=== PATIENT | male | born 1955 | race Caucasian/White ===

== ENCOUNTER 2017-04-28 22:16 | Emergency (ER) | payer MEDICARE, BC ==
--- NOTE | 2017-04-28 23:13 | Emergency Department Record ---
History of Present Illness - General Chief complaint: Head Injury Stated complaint: HEAD INJURY/ CONFUSED NOW Time Seen by Provider: 04/28/17 23:07 Source: Patient, Family Mode of Arrival: Ambulatory Limitations: No limitations - History of Present Illness Initial comments: 61 yo male presents after a fall backwards. He hit his head. No LOC. He did have brief confusion but he does have underlying dementia. No nausea or vomiting. No anti-coagulants. No other pains or injuries. His gate has been steady. No ongoing confusion. He is back to baseline. He has a contusion on the posterior scalp. Complaint: Head injury Onset/Timin -: Minutes(s) Mechanism of Injury: Mechanical fall Location: Dental Loss of Consciousness: No Previous Trauma to this Area: No Place: Home Radiation: None Consistency: Constant Provoking factors: None known Context: On Aspirin - Related Data Home Medications Medication Instructions Recorded Confirmed Last Taken Acetaminophen 500 mg PO ASDIR tab 11/28/16 04/28/17 Unknown Aspirin 81 mg PO QD tab.chew 11/28/16 04/28/17 Unknown Bupropion HCl [Wellbutrin Sr] 150 mg PO QD tab 11/28/16 04/28/17 Unknown Diphenhydramine HCl [Allergy] 12.5 mg PO DAILY 11/28/16 04/28/17 Unknown Docusate Sodium [Stool Softener] 50 mg PO DAILY tab 11/28/16 04/28/17 Unknown Klonopin 1 mg PO BID tab 11/28/16 04/28/17 Unknown Multivit-Min/FA/Lycopen/Lutein 1 each PO DAILY tab 11/28/16 04/28/17 Unknown [Complete Multi 50+ Tablet] Simvastatin 20 mg PO QD tab 11/28/16 04/28/17 Unknown Trazodone HCl 150 mg PO 1-2XD tab 11/28/16 04/28/17 Unknown Allergies/Adverse reactions: Allergies Allergy/AdvReac Type Severity Reaction Status Date / Time metoclopramide HCl AdvReac Intermediate refer to Unverified 04/28/17 22:48 [From [facility]] note Travel Screening - Travel/Exposure Within Last 30 Days Have you traveled within the last 30 days?: No Review of Systems Constitutional: Denies: Chills, Fever, Malaise, Weakness Eyes: Denies: Eye discharge, Eye pain, Photophobia, Vision change ENT: Denies: Congestion, Throat pain Respiratory: Denies: Cough, Dyspnea, Hemoptysis, Stridor, Wheezes Cardiovascular: Denies: Chest pain, Palpitations, Syncope Gastrointestinal: Denies: Abdominal pain, Diarrhea, Nausea, Vomiting Genitourinary: Denies: Dysuria, Hematuria, Urgency Musculoskeletal: Reports: Neck pain. Denies: Arthralgia, Back pain, Myalgia Skin: Denies: Bruising, Change in color, Rash Neurological: Reports: Headache. Denies: Numbness, Weakness Psychiatric: Denies: Anxiety Hematological/Lymphatic: Denies: Blood Clots, Easy bleeding, Easy bruising, Swollen glands Past Medical History - SOCIAL HISTORY Smoking Status: Never smoker Alcohol Use: None Drug Use: None - RESPIRATORY Hx Respiratory Disorders: No - CARDIOVASCULAR Hx Cardio Disorders: Yes Hx Cardiac Cath: Yes - NEURO Hx Neuro Disorders: Yes Hx Dementia: Yes - GI Hx GI Disorders: Yes Hx Reflux: Yes - ENDOCRINE Hx Endocrine Disorders: No - MUSCULOSKELETAL Hx Musculoskeletal Disorders: No - PSYCH Hx Psych Problems: Yes Hx Anxiety: Yes Hx Behavior Problems: Yes (Bi-Polar) Hx Depression: Yes - HEMATOLOGY/ONCOLOGY Hx Hematology/Oncology Disorders: No Family Medical History Any Significant Family History?: No Physical Exam - General General Appearance: Alert, Oriented x3, Cooperative, No acute distress Limitations: No limitations - Head Head exam: negative: Atraumatic (2cm posterior contusion, intact skin, no lacerations) Head exam detail: Abrasion, Contusion Image of Face/Head: 1 - contusion - Eye Eye exam: Normal appearance, PERRL. negative: Conjunctival injection, Periorbital swelling - ENT ENT exam: Normal exam, Mucous membranes moist Ear exam: Normal external inspection Nasal Exam: Normal inspection Mouth exam: Normal external inspection Teeth exam: Normal inspection Throat exam: Normal inspection - Neck Neck exam: Normal inspection, Full ROM. negative: Lymphadenopathy, Tenderness - Respiratory Respiratory exam: Normal lung sounds bilaterally. negative: Respiratory distress - Cardiovascular Cardiovascular Exam: Regular rate, Normal rhythm, Normal heart sounds - GI/Abdominal GI/Abdominal exam: Soft. negative: Tenderness - Rectal Rectal exam: Deferred - exam: Deferred - Extremities Extremities exam: Normal inspection, Full ROM, Normal capillary refill. negative: Tenderness - Back Back exam: Reports: Normal inspection, Full ROM. Denies: CVA tenderness (R), CVA tenderness (L), Muscle spasm, Paraspinal tenderness, Rash noted, Tenderness , Vertebral tenderness - Neurological Neurological exam: Alert, Normal gait, Oriented X3. negative: Altered, Motor sensory deficit - Psychiatric Psychiatric exam: Agitated - Skin Skin exam: Abrasion Course Vital Signs 04/28/17 23:05 Temperature 98.0 F Pulse Rate [ 62 Pulse Ox Probe] Respiratory 18 Rate Blood Pressure 130/106 [Left Arm] Pulse Ox 97 - Reevaluation(s) Reevaluation #1: The CT scans of the head and neck were reviewed. No acute injury of the head or neck Degenerative changes noted in the neck 04/29/17 00:04 Disposition Disposition: Discharge Clinical Impression: Contusion of head Qualifiers: Encounter type: initial encounter Contusion of head detail: scalp Qualified Code(s): S00.03XA - Contusion of scalp, initial encounter Disposition: Home, Self-Care Condition: (1) Good Instructions: Head Injury (ED) Additional Instructions: Return if there are any concerns about pain, dizziness, confusion, or signs of concern after this ER visit. Forms: Patient Portal Access Time of Disposition: 00:08
--- NOTE | 2017-04-30 12:45 | CT SCAN REPORT ---
EXAM: CT OF THE BRAIN WITHOUT CONTRAST HISTORY: TRAUMA. TECHNIQUE: CT of the brain without contrast was obtained. Comparison: None. FINDINGS: The globes are intact. The paranasal sinuses and mastoid air cells are unremarkable. No displaced or depressed skull fracture. No intra or extraaxial hemorrhage. CT is limited for the evaluation of acute infarct. No CT evidence for large or territorial acute infarct. No mass or midline shift. Atrophy. Small vessel ischemic change. IMPRESSION: ATROPHY. SMALL VESSEL ISCHEMIC CHANGE. JOB NUMBER: [id number] [facility]
--- NOTE | 2017-04-30 12:48 | CT SCAN REPORT ---
EXAM: CT OF THE CERVICAL SPINE HISTORY: FALL. TECHNIQUE: Axial CT images of the cervical spine were obtained with coronal and sagittal reconstructions. Comparison: None. FINDINGS: Evaluation of spinal canal contents is limited due to CT technique. Mild motion artifact, however, the vertebral body height and alignment is preserved. The atlantoaxial space is preserved. The lateral masses are not displaced. Multilevel degenerative change. IMPRESSION: MOTION ARTIFACT. MULTILEVEL DEGENERATIVE CHANGE. JOB NUMBER: [id number] [facility]
== END 2017-04-29 00:30 | disposition home or self-care (01) ==
LOC: ER 22:16
DX: S00.03XA Contusion of scalp, initial encounter (principal); F31.9 Bipolar disorder, unspecified; W18.39XA Other fall on same level, initial encounter
CPT/HCPCS: 70450; 72125; 99283

== ENCOUNTER 2017-07-22 12:03 | Emergency (ER) | payer MEDICARE, BC ==
--- NOTE | 2017-07-22 12:20 | Emergency Department Record ---
History of Present Illness - General Chief Complaint: Recheck - Other Stated Complaint: HIGH INR Time Seen by Provider: 07/22/17 12:12 Source: Patient Mode of arrival: Ambulatory - History of Present Illness Initial Comments: 62 yo male presents with concerns about an elevated INR, slow heart rate, and possible blood in the stool on Friday. He was started on coumadin about 3 weeks ago for atrial fibrillation. His visiting RN today noted the POC testing to be elevated on the INR. The noted HR in the 40's for several days. The patient thinks he had some streaks of blood in the stools Friday. The patient states he has not symptoms. No chest pain, no shortness of breath, no lightheaded or dizziness. No swelling. He feels "just fine". PCP is Edward , Cardio is Zuleyka. Complaint: Abnormal lab -: Days(s) Symptoms Since Prior Visit: No new symptoms Associated Symptoms: None - Related Data Home Medications Medication Instructions Recorded Confirmed Last Taken Aspirin [Aspirin EC] 81 mg PO DAILY 07/22/17 07/22/17 1 Day Ago ~07/21/17 Clonazepam [Klonopin] 2 mg PO DAILY 07/22/17 07/22/17 1 Day Ago ~07/21/17 Escitalopram Oxalate [Lexapro] 10 mg PO DAILY 07/22/17 07/22/17 1 Day Ago ~07/21/17 Fluticasone Propionate [Flonase 1 spray NS QPM 07/22/17 07/22/17 1 Day Ago Allergy Relief] ~07/21/17 Loratadine [Claritin] 10 mg PO DAILY 07/22/17 07/22/17 1 Day Ago ~07/21/17 Ranitidine HCl [Zantac] 150 mg PO BID 07/22/17 07/22/17 1 Day Ago ~07/21/17 Risperidone [Risperdal] 2 mg PO BID 07/22/17 07/22/17 1 Day Ago ~07/21/17 Warfarin Sodium [Coumadin] 5 mg PO ASDIR 07/22/17 07/22/17 1 Day Ago ~07/21/17 Allergies Allergy/AdvReac Type Severity Reaction Status Date / Time metoclopramide HCl AdvReac Intermediate refer to Verified 07/22/17 12:17 [From Reglan] note prochlorperazine AdvReac HYPERSENSIT Verified 07/22/17 12:18 [From Compazine] POP Review of Systems Constitutional: Denies: Chills, Fever, Malaise, Weakness Eyes: Denies: Eye discharge, Eye pain, Photophobia ENT: Denies: Congestion, Throat pain Respiratory: Denies: Cough, Dyspnea, Hemoptysis, Stridor, Wheezes Cardiovascular: Denies: Chest pain, Palpitations, Syncope Endocrine: Denies: Fatigue, Polydipsia, Polyuria Gastrointestinal: Reports: Hematochezia (possible on Friday). Denies: Abdominal pain, Diarrhea, Nausea, Vomiting Genitourinary: Denies: Dysuria, Frequency, Hematuria Musculoskeletal: Denies: Arthralgia, Back pain, Joint swelling, Myalgia Skin: Denies: Bruising, Change in color, Rash Neurological: Denies: Abnormal gait, Confusion, Headache, Numbness, Tingling, Tremors, Weakness Psychiatric: Denies: Anxiety Hematological/Lymphatic: Denies: Blood Clots, Easy bleeding, Easy bruising, Swollen glands Past Medical History - SOCIAL HISTORY Smoking Status: Never smoker Drug Use: None - RESPIRATORY Hx Respiratory Disorders: No - CARDIOVASCULAR Hx Cardio Disorders: Yes Hx Cardiac Cath: Yes - NEURO Hx Neuro Disorders: Yes Hx Dementia: Yes - GI Hx GI Disorders: Yes Hx Reflux: Yes - ENDOCRINE Hx Endocrine Disorders: No - MUSCULOSKELETAL Hx Musculoskeletal Disorders: No - PSYCH Hx Psych Problems: Yes Hx Anxiety: Yes Hx Behavior Problems: Yes (Bi-Polar) Hx Depression: Yes - HEMATOLOGY/ONCOLOGY Hx Hematology/Oncology Disorders: No Physical Exam - General General Appearance: Alert, Oriented x3, Cooperative, No acute distress Limitations: No limitations - Head Head exam: Atraumatic, Normal inspection - Eye Eye exam: Normal appearance. negative: Conjunctival injection, Periorbital swelling - ENT ENT exam: Normal exam, Mucous membranes moist Ear exam: Normal external inspection Nasal Exam: Normal inspection Mouth exam: Normal external inspection - Neck Neck exam: Normal inspection, Full ROM. negative: Tenderness - Respiratory Respiratory exam: Normal lung sounds bilaterally. negative: Respiratory distress - Cardiovascular Cardiovascular Exam: Normal heart sounds, Bradycardia, Irregular rhythm. negative: Normal rhythm Peripheral Pulses: 2+: Radial (R), Radial (L) - GI/Abdominal GI/Abdominal exam: Soft. negative: Distended, Guarding, Rebound, Rigid, Tenderness - Rectal Rectal exam: Black stool, Bloody stool, Heme (+) stool, Normal inspection, Other (blood stains noted in the underwear, dark stool that is HEME positive with a positive control). negative: Fecal impaction, Hemorrhoids, Mass - exam: Deferred - Extremities Extremities exam: Normal inspection, Full ROM, Normal capillary refill. negative: Tenderness - Back Back exam: Reports: Normal inspection, Full ROM. Denies: Muscle spasm, Rash noted, Tenderness - Neurological Neurological exam: Alert, Normal gait, Oriented X3, Reflexes normal - Psychiatric Psychiatric exam: Normal affect, Normal mood - Skin Skin exam: Dry, Intact, Normal color, Warm. negative: Cyanosis, Diaphoretic Course - Reevaluation(s) Reevaluation #1: EKG Sinus Bradycardia rate 43, intervals QRS 148, LBBB pattern, ST no acute changes, CW BBB, axis normal 07/22/17 12:42 No old EKG on EMR 07/22/17 12:43 Reevaluation #2: The Hgbis 15.3 The CR is 1.6 with prior level of 1.8 on May 16 07/22/17 13:14 INR is 15.8 Per the Policy with INR >0 without active bleeding PO 5mg Coumadin PO 07/22/17 13:30 Reevaluation #3: I ANY [facility] He accepts the patient for transfer to [facility] 07/22/17 14:21 Medical Decision Making - Lab Data Result diagrams: 07/22/17 12:40 07/22/17 12:40 Disposition Disposition: Transfer Clinical Impression: Supratherapeutic INR, Bradycardia GI bleed Qualifiers: GI bleed type/associated pathology: unspecified gastrointestinal hemorrhage type Qualified Code(s): K92.2 - Gastrointestinal hemorrhage, unspecified Disposition: Acute Care Hospital Transfer Transfer To: [facility] Reason For Transfer: Eleveated INR, GI bleed Accepting Physician: Alan Time Discussed w/Accepting Physician: 14:21 Condition: (2) Stable Forms: Patient Portal Access Time of Disposition: 14:21 Quality - Quality Measures Quality Measures: N/A - Blood Pressure Screening Does Patient Have Any of the Following: No Blood Pressure Classification: Pre-Hypertensive BP Reading Systolic Measurement: 138 Diastolic Measurement: 88 Screening for High Blood Pressure: < Pre-Hypertensive BP, F/U Documented > [ [id number]] Pre-Hypertensive Follow-up Interventions: Referral to alternative/primary care provider.
[2017-07-22 12:47] LABS: BASO % 0.7 % (0-6); EOS % 3.7 % (0-6); GRAN % 70.7 % (47-80); HEMATOCRIT 45.4 % (42.0-52.0); HEMOGLOBIN 15.3 gm/dl (14.0-18.0); LYMPH % 16.7 % (16-45); MEAN CELL VOLUME 91.2 fl (81-97); MEAN CORPUSCULAR HEMOGLOBIN 30.7 pg (27-33); MEAN CORPUSCULAR HGB CONC 33.7 g/dl (32-36); MONO % 8.2 % (0-9); PLATELET COUNT 223 K/uL (130-400); RED BLOOD COUNT 4.98 M/uL (4.40-5.70); RED CELL DISTRIBUTION WIDTH 12.7 % (11.5-14.5)
[2017-07-22 13:05] LABS: ANION GAP 10.8 (7-16); CARBON DIOXIDE 24.2 mmol/L (22-30); CREATININE 1.6 mg/dL (0.66-1.25)
[2017-07-22] MEDS ORDERED: PHYTONADIONE 10 MG/ML AMPUL PO ONE (13:29)
[2017-07-22 13:31] LABS: INR 15.85
[2017-07-22 14:08] LABS: ABO GROUP O; ANTIBODY SCREEN NEGATIVE (NEGATIVE); RH TYPE POSITIVE
[2017-07-22 14:31] LABS: URINE APPEARANCE CLEAR; URINE BILIRUBIN NEGATIVE (NEGATIVE); URINE BLOOD TRACE-I (NEGATIVE); URINE COLOR YELLOW; URINE GLUCOSE (UA) NEGATIVE (NEGATIVE); URINE KETONE NEGATIVE (NEGATIVE); URINE LEUKOCYTE ESTERASE NEGATIVE (NEGATIVE); URINE NITRITE NEGATIVE (NEGATIVE); URINE PROTEIN NEGATIVE (NEGATIVE); URINE UROBILINOGEN 0.2 E.U./dL (0.20 - 1.00)
[2017-07-22 14:44] LABS: URINE BACTERIA NONE SEEN; URINE EPITHELIAL CELLS 0 - 2 (FEW); URINE RBC 0 - 2 (NONE SEEN); URINE WBC 0 - 2 (0-2/hpf)
== END 2017-07-22 18:07 | disposition short-term general hospital (02) ==
LOC: ER 12:03
DX: K92.2 Gastrointestinal hemorrhage, unspecified (principal); R79.1 Abnormal coagulation profile; R00.1 Bradycardia, unspecified; I48.91 Unspecified atrial fibrillation; Z79.01 Long term (current) use of anticoagulants
CPT/HCPCS: 80048; 81001; 85025; 85610; 85730; 86850; 86900; 86901; 93005; 93010; 99285